=== PATIENT | female | born 1960 | race Caucasian/White ===

== ENCOUNTER 2016-05-28 00:40 | Emergency (ER) | payer OTHER ==
[~2016-05-28] VITALS: Ht 162.6 cm; Wt 64.6 kg
[~2016-05-28 00:40] MED LIST: ACID CONTROL150 MG PO; AQUAPHOR OINTM105 GM TP; BENZTROPINE ME0.5 MG PO; CARAFATE100 MG/ML PO; CEFDINIR300 MG PO; CEPHALEXIN500 MG PO; CLARITIN; COGENTIN; COGENTIN0.5 MG PO; DOXYCYCLINE HY100 MG PO; ESCITALOPRAM OX10 MG PO; FLEXERIL10 MG PO; FLONASE; FLONASE16 GM NS; HALDOL; HALDOL1 MG PO; HALDOL10 MG PO; HALOPERIDOL5 MG PO; KEFLEX500 MG PO; LATUDA60 MG PO; LEXAPRO20 MG PO; OMEPRAZOLE40 M1 PO; PREDNISONE20 MG PO; PRILOSEC40 MG PO; QUETIAPINE FUM100 MG PO; ROBITUSSIN AC,T10 ML PO; SEROQUEL300 MG PO; TRAMADOL HCL50 MG PO; TRILEPTAL; TYLENOL WITH C1 EACH PO; ULTRAM50 MG PO; VICODIN HP TAB1 EACH PO; ZYRTEC10 M3 PO; [UNRECOGNIZED DRUG - OTHER]
[2016-05-28 01:22] LABS: ADD MIUA? YES; BILIRUBIN NEGATIVE; BLOOD NEGATIVE; COLOR YELLOW ((YELLOW)); GLUCOSE (STRIP) NEGATIVE; KETONES NEGATIVE; LEUKOCYTES NEGATIVE; NITRITE POSITIVE; PH, URINE 6.5 (5-8); PROTEIN (STRIP) NEGATIVE; SPECIFIC GRAVITY 1.008 (1.000-1.030); UROBILINOGEN 0.2 MG/DL (0.2-1.0)
[2016-05-28] MEDS ORDERED: NAPROSYN500 MG PO (01:35)
[2016-05-28 01:50] VITALS: BP 101/64
[2016-05-28 02:09] LABS: BACTERIA RARE; CASTS NONE SEEN /LPF; CRYSTALS NONE SEEN; EPITHELIAL CELLS NONE SEEN; MUCUS NONE SEEN; RED BLOOD CELLS NONE SEEN /HPF (0-5); WHITE BLOOD CELLS NONE SEEN /HPF (0-5)
== END 2016-05-28 01:51 | disposition home or self-care (01) ==
LOC: EME 00:40
PROVIDERS: Nurse Practitioner Family
DX: S39.012A Strain of muscle, fascia and tendon of lower back, initial encounter (principal); X50.0XXA Overexertion from strenuous movement or load, initial encounter; Y93.H1 Activity, digging, shoveling and raking; Z76.0 Encounter for issue of repeat prescription
CPT/HCPCS: 81003; 99281; 99283

== ENCOUNTER 2016-11-18 02:40 | Emergency (ER) | payer OTHER ==
[~2016-11-18] VITALS: Ht 162.6 cm; Wt 85.0 kg
[~2016-11-18 02:40] MED LIST changes: +NAPROSYN500 MG PO
[2016-11-18] MEDS ORDERED: HALDOL5 MG PO (02:59)
[2016-11-18] MEDS ORDERED: BENZTROPINE ME0.5 MG PO (02:59)
[2016-11-18] MEDS ORDERED: OLANZAPINE10 MG PO (03:00)
[2016-11-18] MEDS ORDERED: MIRTAZAPINE30 MG PO (03:00)
[2016-11-18] MEDS ORDERED: ESCITALOPRAM OX20 MG PO (03:00)
[2016-11-18] MEDS ORDERED: FIORICET,ESG1 TABLET PO (04:55)
[2016-11-18 05:47] VITALS: BP 125/72
== END 2016-11-18 05:47 | disposition home or self-care (01) ==
LOC: EME → EDBD 02:40 → EME 02:40
DX: G43.909 Migraine, unspecified, not intractable, without status migrainosus (principal); M79.7 Fibromyalgia; I10 Essential (primary) hypertension; F31.9 Bipolar disorder, unspecified; R56.9 Unspecified convulsions; Z90.49 Acquired absence of other specified parts of digestive tract; F17.200 Nicotine dependence, unspecified, uncomplicated
CPT/HCPCS: 99281; 99285; J1100

== ENCOUNTER 2016-11-21 22:19 | Emergency (ER) | payer OTHER ==
[~2016-11-21] VITALS: Ht 162.6 cm; Wt 86.4 kg
[~2016-11-21 22:19] MED LIST changes: +ESCITALOPRAM OX20 MG PO; +FIORICET,ESG1 TABLET PO; +HALDOL5 MG PO; +MIRTAZAPINE30 MG PO; +OLANZAPINE10 MG PO
[2016-11-21 23:37] VITALS: BP 99/56
== END 2016-11-21 23:41 | disposition home or self-care (01) ==
LOC: EME → EDBD 22:19 → EME 23:41
DX: G43.909 Migraine, unspecified, not intractable, without status migrainosus (principal); I10 Essential (primary) hypertension; J44.9 Chronic obstructive pulmonary disease, unspecified; Z88.6 Allergy status to analgesic agent; Z88.0 Allergy status to penicillin; Z91.040 Latex allergy status; F17.200 Nicotine dependence, unspecified, uncomplicated
CPT/HCPCS: 99281; 99283

== ENCOUNTER 2016-12-08 23:13 | Emergency (ER) | payer OTHER ==
[~2016-12-08] VITALS: Ht 162.6 cm; Wt 76.6 kg
[2016-12-08 23:31] VITALS: BP 108/71
[2016-12-09] MEDS ORDERED: ZOFRAN4 MG PO (01:02)
[2016-12-09] MEDS ORDERED: REGLAN10 MG PO (01:02)
[2016-12-09] MEDS ORDERED: FIORICET 50-301 EACH PO (01:03)
== END 2016-12-09 01:34 | disposition home or self-care (01) ==
LOC: EME 23:13 → EXP 23:13
DX: G43.909 Migraine, unspecified, not intractable, without status migrainosus (principal); F17.200 Nicotine dependence, unspecified, uncomplicated
CPT/HCPCS: 99281; 99284

== ENCOUNTER 2016-12-25 23:35 | Emergency (ER) | payer OTHER ==
[~2016-12-25] VITALS: Ht 162.6 cm; Wt 52.2 kg
[~2016-12-25 23:35] MED LIST changes: +FIORICET 50-301 EACH PO; +REGLAN10 MG PO; +ZOFRAN4 MG PO
[2016-12-26 00:24] VITALS: BP 108/50
[2016-12-26] MEDS ORDERED: TYLENOL REGULA325 MG PO (23:58)
== END 2016-12-26 00:25 | disposition home or self-care (01) ==
LOC: EME → EDBD 23:35 → EME 12-26 00:25
DX: R51 Headache (principal); F10.129 Alcohol abuse with intoxication, unspecified; F17.200 Nicotine dependence, unspecified, uncomplicated; Z88.0 Allergy status to penicillin; Z91.040 Latex allergy status; Z88.6 Allergy status to analgesic agent
CPT/HCPCS: 99281; 99283

== ENCOUNTER 2016-12-26 22:10 | Emergency (ER) | payer OTHER ==
[~2016-12-26] VITALS: Ht 162.6 cm; Wt 77.8 kg
[2016-12-26] MEDS ORDERED: TYLENOL REGULA325 MG PO (23:58)
[2016-12-27 00:10] VITALS: BP 112/75
== END 2016-12-27 00:12 | disposition home or self-care (01) ==
LOC: EME 22:10
DX: R51 Headache (principal)
CPT/HCPCS: 99281; 99283

== ENCOUNTER 2017-01-07 00:08 | Emergency (ER) | payer OTHER ==
[~2017-01-07] VITALS: Ht 162.6 cm; Wt 78.2 kg
[~2017-01-07 00:08] MED LIST changes: +TYLENOL REGULA325 MG PO
[2017-01-07 03:00] LABS: HEMATOCRIT 35.4 % (36.0-46.0); MCH 29.6 PG (29.0-34.0); MCHC 31.9 G/DL (30.0-36.0); MCV 92.7 FL (83-99); MEAN PLAT.VOLUME 9.7 uM^3 (9.5-12.4); PLATELET COUNT 306 K/uL (156-360); RBC DIS.WIDTH-CV 15.8 % (11.8-14.6); RBC DIS.WIDTH-SD 53.9 % (39-53); RED BLOOD COUNT 3.82 M/uL (3.80-5.20); WHITE BLOOD COUNT 9.1 K/uL (4.1-10.2)
[2017-01-07 03:12] LABS: CHLORIDE 107 mEq/L (99-109); POTASSIUM 4.1 mEq/L (3.7-5.4); SODIUM 141 mEq/L (136-147)
[2017-01-07 03:15] LABS: ANION GAP 8 MEQ/L (2-14); GLUCOSE 87 mg/dL (70-99)
[2017-01-07 03:17] LABS: SERUM ETHYL ALCOHOL < 10 mg/dL
[2017-01-07 03:18] LABS: GFR ESTIMATE (CALCULATED) 45 mL/min/
[2017-01-07 03:20] LABS: UREA NITROGEN (BUN) 17 mg/dL (9-23)
[2017-01-07 03:21] LABS: SALICYLATE < 5.0 MG/DL (15-30)
[2017-01-07] MEDS ORDERED: ACETAMINOPHEN325 M1 PO (03:37)
[2017-01-07 03:50] VITALS: BP 92/54
== END 2017-01-07 03:50 | disposition home or self-care (01) ==
LOC: EME 00:08
PROVIDERS: Emergency Medicine
DX: G43.909 Migraine, unspecified, not intractable, without status migrainosus (principal); R05 Cough; I10 Essential (primary) hypertension; F17.200 Nicotine dependence, unspecified, uncomplicated
CPT/HCPCS: 80048; 85027; 99281; 99283; G0480

== ENCOUNTER 2017-01-09 23:50 | Emergency (ER) | payer OTHER ==
[~2017-01-09] VITALS: Ht 162.6 cm; Wt 77.1 kg
[~2017-01-09 23:50] MED LIST changes: +ACETAMINOPHEN325 M1 PO
[2017-01-09 23:53] VITALS: BP 99/67
== END 2017-01-10 01:23 | disposition home or self-care (01) ==
LOC: EME 23:50 → EXP 23:50
DX: F41.9 Anxiety disorder, unspecified (principal); F31.9 Bipolar disorder, unspecified; Z76.0 Encounter for issue of repeat prescription; Z88.6 Allergy status to analgesic agent; Z88.0 Allergy status to penicillin; Z91.040 Latex allergy status
CPT/HCPCS: 99281; 99284

== ENCOUNTER 2017-11-12 | Emergency (ER) | payer OTHER ==
[~2017-11-12] VITALS: Ht 162.6 cm; Wt 85.0 kg
[2017-11-12 02:00] VITALS: BP 106/81
== END 2017-11-12 02:00 | disposition home or self-care (01) ==
LOC: EME → EDBD → EME
DX: S80.02XA Contusion of left knee, initial encounter (principal); S00.93XA Contusion of unspecified part of head, initial encounter; W01.0XXA Fall on same level from slipping, tripping and stumbling without subsequent striking against object, initial encounter; G89.29 Other chronic pain; Z90.49 Acquired absence of other specified parts of digestive tract; Z90.710 Acquired absence of both cervix and uterus
CPT/HCPCS: 70450; 73564; 99281; 99284

== ENCOUNTER → 2017-11-28 | Emergency (ER) | payer OTHER ==
[~2017-11-28] VITALS: Ht 160 cm; Wt 88.9 kg
[2017-11-29 02:55] VITALS: BP 110/62
== END | disposition home or self-care (01) ==
LOC: EME 22:08
DX: G89.29 Other chronic pain (principal); Z76.5 Malingerer [conscious simulation]; R51 Headache; R42 Dizziness and giddiness; M25.461 Effusion, right knee; M25.462 Effusion, left knee; J45.909 Unspecified asthma, uncomplicated; Z86.73 Personal history of transient ischemic attack (TIA), and cerebral infarction without residual deficits; F17.200 Nicotine dependence, unspecified, uncomplicated
CPT/HCPCS: 99281; 99284

== ENCOUNTER 2017-12-29 09:21 | Emergency (ER) | payer OTHER ==
[~2017-12-29] VITALS: Ht 162.6 cm; Wt 88.0 kg
[2017-12-29 10:52] LABS: BASOPHIL (%) 0.5 % (0-1); BASOPHIL COUNT 0.1 K/uL (0-0.1); EOSINOPHIL (%) 2.6 % (0-5); EOSINOPHIL COUNT 0.3 K/uL (0-0.3); HEMATOCRIT 36.3 % (36.0-46.0); HEMOGLOBIN 11.3 G/DL (11.9-15.5); IMMATURE GRANULOCYTE (%) 0.4 % (0.0-0.7); LYMPHOCYTE (%) 33.6 % (15-42); LYMPHOCYTE COUNT 3.3 K/uL (1.0-2.8); MCH 28.8 PG (29.0-34.0); MCHC 31.1 G/DL (30.0-36.0); MCV 92.6 FL (83-99); MONOCYTE (%) 7.7 % (3-12); MONOCYTE COUNT 0.8 K/uL (0-0.8); NEUTROPHIL (%) 55.2 % (45-76); NEUTROPHIL COUNT 5.4 K/uL (1.8-6.4); PLATELET COUNT 296 K/uL (156-360); RBC DIS.WIDTH-SD 50.9 % (39-53); RED BLOOD COUNT 3.92 M/uL (3.80-5.20); WHITE BLOOD COUNT 9.7 K/uL (4.1-10.2)
[2017-12-29 10:59] LABS: INTER. NORMALIZED RATIO 1.1
[2017-12-29 11:02] LABS: CHLORIDE 104 mEq/L (99-109); POTASSIUM 4.4 mEq/L (3.7-5.4); SODIUM 139 mEq/L (136-147)
[2017-12-29 11:04] LABS: GLUCOSE 85 mg/dL (70-99)
[2017-12-29 11:08] LABS: CREATININE 0.8 mg/dL (0.6-1.3); GFR ESTIMATE (CALCULATED) > 59 mL/min/; UREA NITROGEN (BUN) 24 mg/dL (9-23)
[2017-12-29 12:25] VITALS: BP 146/77
== END 2017-12-29 12:25 | disposition home or self-care (01) ==
LOC: EME 09:21
PROVIDERS: Emergency Medicine
DX: K62.5 Hemorrhage of anus and rectum (principal); I10 Essential (primary) hypertension; J45.909 Unspecified asthma, uncomplicated; M79.7 Fibromyalgia; G89.29 Other chronic pain; F31.9 Bipolar disorder, unspecified; R56.9 Unspecified convulsions; F17.200 Nicotine dependence, unspecified, uncomplicated; Z90.49 Acquired absence of other specified parts of digestive tract; Z88.0 Allergy status to penicillin; Z88.6 Allergy status to analgesic agent; Z91.040 Latex allergy status
CPT/HCPCS: 80048; 85025; 85610; 99281; 99284